=== PATIENT | female | born 1990 | race Caucasian/White ===

== ENCOUNTER 2020-02-29 19:18 | Emergency (ER) | payer OTHER ==
[2020-02-29 19:27] VITALS: BP 121/81; PULSE 87; TEMP 98.6; BMI 25.4
[2020-02-29] MEDS ORDERED: DIPHTH,PERTUSS(ACELL),TET 0.5 ML DISP.SYRIN IM ONE ×2 (19:39→19:40)
--- NOTE | 2020-02-29 19:45 | PDOC ---
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 She states she has been keeping the wound clean and dry. She is requesting a tetanus booster because she does not know when the last time she had one. She denies any numbness or tingling. She is allergic to shellfish. She denies any past medical history. Past History - Medical History Allergies/Adverse Reactions: Allergies Allergy/AdvReac Type Severity Reaction Status Date / Time No Known Drug Allergies Allergy Severe Verified 08/31/16 14:28 Shellfish Allergy Severe Difficulty Verified 08/31/16 14:28 Breathing pineapple Allergy Severe Swelling Uncoded 08/31/16 14:28 Home Medications: Ambulatory Orders Ibuprofen 800 mg PO TID #20 tablet 08/31/16 Oseltamivir Phosphate [Tamiflu] 75 mg PO BID #10 capsule 08/31/16 Asthma: No Cancer: No Cardiac Disorders: No Diabetes: No HTN: No Seizures: No Thyroid Disease: No - Surgical History Neurologic Surgery: No - Reproductive History (#): 2 Para: 0 Cervical CA: No Dysfunctional Uterine Bleeding: No Ectopic : No Endometrial CA: No Polycystic Ovaries: No Tubal Ligation: No Spontaneous : 1 - Immunization History Immunization Up to Date: Yes - Psycho-Social/Smoking History Smoking Status: No Smoking History: Never smoked Number of Cigarettes Smoked Daily: 0 - Substance Abuse Hx (Audit-C & DAST Scrn) How often the patient has a drink containing alcohol: Never Score: In Men: 4 or > Positive; In Women: 3 or > Positive: 0 Screen Result (Pos requires Nsg. Audit-10AR): Negative In the last yr the pt used illegal drug/Rx for NonMed reason: No Score: Yes response is considered Positive: 0 Screen Result (Positive result requires Nsg. DAST-10): Negative Review of Systems - Review of Systems Comments:: 02/29/20 19:41 - Review of Systems Able to Perform ROS?: Yes Constitutional: No: Fever, Chills, Loss of Appetite, Night Sweats, Weakness HEENTM: No: Eye Pain, Vision changes, Ear Pain, Throat Pain, Throat Swelling, Mouth Pain, Difficulty Swallowing Respiratory: No: Cough, Shortness of Breath, Wheezing, Sputum Production Cardiac (ROS): No: Chest Pain, Chest Tightness, Palpitations, Irregular Heart Beat, Edema ABD/GI: No: Nausea, Vomiting, Abdominal Pain, Diarrhea : No Dysuria, No Hematuria, No Frequency, No Urgency Musculoskeletal: No: Muscle Pain, Back Pain, Joint Pain, Muscle Weakness, Neck Pain Integumentary: No: Lesions, Rash; positive: Right middle finger laceration Neurological: No: Headache, Numbness, Tingling, Weakness, Speech Difficulties *Physical Exam - Vital Signs Last Vital Signs Temp Pulse Resp BP Pulse Ox 98.6 F 87 20 121/81 99 02/29/20 19:22 02/29/20 19:22 02/29/20 19:22 02/29/20 19:22 02/29/20 19:22 - Physical Exam 02/29/20 19:41 - Physical Exam General Appearance: Nourished, Appropriately Dressed, No Distress HEENT: EOMI, Normal Voice, Hearing Grossly Normal Neck: Supple, No Lymphadenopathy (R), No Lymphadenopathy (L), No Rigidity, No Decreased range of motion Respiratory/Chest: Lungs Clear, Normal Breath Sounds. No Respiratory Distress, No Accessory Muscle Use Cardiovascular: Regular Rhythm, Regular Rate, S1, S2 Musculoskeletal: Normal Inspection. No Decreased Range of Motion Extremity: Normal Capillary Refill, Normal Inspection Integumentary: Normal Color, Dry. No Rash; right middle finger with a laceration just distal to the PIP on the dorsal aspect of the finger. The wound is already healing and does not gape at all. The laceration is superficial. There is no acute infection appreciated. Neurologic: software integration developer II-XII NML intact, Fully Oriented, Alert, Normal Mood/Affect, Normal Response Medical Decision Making - Medical Decision Making 02/29/20 19:42 Assessment: Patient is a 29-year-old female with a middle finger superficial laceration that she sustained yesterday. Plan: -Boostrix ordered -Patient has been made aware that the wound cannot be repaired secondary to it being greater than 12 hours old, but also does not require repair in her circumstance as it is superficial. She has been made aware to keep the wound clean and dry. She should wash once daily with warm water and soap. The patient is stable for discharge and she understands agrees to treatment plan. Discharge - Discharge Information Problems reviewed: Yes Clinical Impression/Diagnosis: Finger laceration Qualifiers: Encounter type: initial encounter Finger: middle finger Damage to nail status: without damage Foreign body presence: without foreign body Laterality: right Qualified Code(s): S61.212A - Laceration without foreign body of right middle finger without damage to nail, initial encounter Condition: Stable Disposition: HOME - Follow up/Referral - Patient Discharge Instructions Patient Printed Discharge Instructions: DI for Avulsion Laceration (Not Requiring Sutures) Additional Instructions: Your laceration does not require suture repair. Keep the wound clean and dry and wash it once daily with warm water and soap. Keep a bandage on the wound if away from home and use your hands. You can keep the wound uncovered if at home and relaxing. - Post Discharge Activity
== END 2020-02-29 20:04 | disposition home or self-care (01) ==
LOC: JERFT 19:18
PROC: 3E0234Z Introduction of Serum, Toxoid and Vaccine into Muscle, Percutaneous Approach (ICD-10-PCS; principal; 2020-02-29)
DX: S61.212A Laceration without foreign body of right middle finger without damage to nail, initial encounter (principal)
CPT/HCPCS: 90715; 99282-25

== ENCOUNTER 2024-10-06 06:47 | Day surgery (SDC) | payer OTHER ==
[2024-10-04 13:16] VITALS: BMI 23.3
[2024-10-06] MEDS ORDERED: MIDAZOLAM HCL 2 MG/2 ML SINGLE DOSE VIAL ONE (13:54)
[2024-10-06] MEDS ORDERED: PROPOFOL 20 ML ONE (14:46)
[2024-10-06] MEDS: LACTATED RINGERS SOLUTION 1,000 ML IV SCH (15:10)
[2024-10-06] MEDS: KETOROLAC TROMETHAMINE 30 MG/1 ML VIAL IVPUSH ONE (15:11)
[2024-10-06] MEDS ORDERED: ACETAMINOPHEN INJECTION 100 ML ONE (15:22)
[2024-10-06] MEDS: ACETAMINOPHEN 1000 MG/100 ML BAG IVPB ONE (15:30)
[2024-10-06] MEDS ORDERED: ONDANSETRON 4 MG/2 ML VIAL ONE (15:37)
[2024-10-06] MEDS: ONDANSETRON 4 MG/2 ML VIAL IVPUSH PRN (15:38)
[2024-10-06] MEDS ORDERED: PROMETHAZINE HCL 25 MG/1 ML VIAL ONE (15:55)
[2024-10-06] MEDS: PROMETHAZINE HCL 25 MG/1 ML VIAL IVPB PRN (15:57)
[2024-10-06] MEDS ORDERED: oxyCODONE HCL 5 MG TABLET PO PRN ×2 (17:07)
[2024-10-06 18:37] VITALS: RESP 20; TEMP 97.3
[2024-10-06 18:39] VITALS: BP 109/68; PULSE 66
== END 2024-10-06 19:27 | disposition home or self-care (01) ==
LOC: JASU-SURG 06:47
PROVIDERS: ATTEND Obstetrics & Gynecology
PROC: 0UB98ZZ Excision of Uterus, Via Natural or Artificial Opening Endoscopic (ICD-10-PCS; principal; 2024-10-06 14:00)
DX: D25.0 Submucous leiomyoma of uterus (principal); N85.6 Intrauterine synechiae
CPT/HCPCS: 81025; 88305-TC; 93005; 93010; 94760; J0131